=== PATIENT | female | born 1940 | race Caucasian/White ===

== ENCOUNTER → 2016-08-25 | Outpatient (CLI) | payer OTHER ==
--- NOTE | 2016-08-25 12:27 | MA ---
Digital Bilateral Mammograms with Tomosynthesis History: Routine screening. Benign results from previous stereotactic needle biopsy of right breast i n 2014. Technique: Standard digital cephalocaudal and tomosynthesis oblique views, with computer-aided detec tion (iCAD). Findings: Comparisons: 2014, 2013, 2012. Breast density B. Metallic tissue markers are present in th e right breast, from previous biopsy. There are no masses, no suspicious calcifications, and no secon carlos signs of malignancy. Impression: Negative. BI-RADS category 1. Recommendation: Bilateral screening mammograms in one year. Negative mammography should not preclude additional workup of any clinically suspicious area. [facility] will send a letter of results to the patient. The patient's information is entered into a reminder system with a target due date for her next mammogram.
== END ==
LOC: FIMAGING 10:44
DX: Z12.31 Encounter for screening mammogram for malignant neoplasm of breast (principal)
CPT/HCPCS: G0202

== ENCOUNTER → 2017-01-11 | Outpatient (CLI) | payer OTHER | LOC: BHFA 16:00 | PROVIDERS: ATTEND Internal Medicine | DX: R00.0 Tachycardia, unspecified (principal); R00.2 Palpitations ==

== ENCOUNTER → 2017-02-24 | Outpatient (CLI) | payer OTHER | LOC: BHFA 10:45 | PROVIDERS: ATTEND Internal Medicine Cardiovascular Disease | DX: R94.31 Abnormal electrocardiogram [ECG] [EKG] (principal) ==

== ENCOUNTER → 2017-08-29 | Outpatient (CLI) | payer OTHER | LOC: FIMAGING 15:04 | PROVIDERS: ATTEND Internal Medicine | DX: Z12.31 Encounter for screening mammogram for malignant neoplasm of breast (principal); Z80.3 Family history of malignant neoplasm of breast ==

== ENCOUNTER → 2018-08-30 | Outpatient (CLI) | payer OTHER | END | disposition home or self-care (01) | LOC: FIMAGING 13:55 | PROVIDERS: ATTEND Internal Medicine | DX: Z12.31 Encounter for screening mammogram for malignant neoplasm of breast (principal); Z87.09 Personal history of other diseases of the respiratory system; R92.0 Mammographic microcalcification found on diagnostic imaging of breast ==